=== PATIENT | female | born 1950 | race African-American/Black ===

== ENCOUNTER 2016-09-30 23:33 | Emergency (ER) | payer OTHER ==
[~2016-09-30] VITALS: Ht 175.3 cm; Wt 112.7 kg
[~2016-09-30 23:33] MED LIST: CLON.1 PO; ERYT.5%O EACH EYE; GUAI100S6 PO; NORV5TAB PO; TRAM50 PO; ZITH250T PO
[2016-09-30 23:39] VITALS: BP 151/97; PULSE 99; RESP 14; TEMP 98.4; O2SAT 97
[2016-09-30 23:49] VITALS: BP 151/97; PULSE 99; RESP 14; TEMP 98.4; O2SAT 97
--- NOTE | 2016-09-30 23:58 | PD ---
HPI Chief Complaint: Cold / Flu Symptoms Time Seen by Provider: 23:48 Travel History International Travel<30 days: No Contact w/Intl Traveler<30days: No Traveled to known affect area: No History of Present Illness HPI The patient is a 66-year-old female that complains of cough/cold symptoms for 5 days. She states she had similar symptoms the entire month of July. These resolved but they started again 5 days ago. The cough is productive of white sputum. She denies any fever but does have chills. She does not smoke. She denies any nausea, vomiting or diarrhea. She does have sharp pain over the right lateral ribs. She states she injured them months ago. PFSH Past Medical History Heart Rhythm Problems: No Cardiac Catheterization: No Cardiovascular Problems: No High Cholesterol: No Congestive Heart Failure: No Diabetes: No Diminished Hearing: No Hypertension: Yes Myocardial Infarction: No ?: Not Past Surgical History Coronary Artery Bypass Graft: No Hysterectomy: Yes (90S) Social History Alcohol Use: No Tobacco Use: No Substance Use: No Allergies-Medications (Allergen,Severity, Reaction): Coded Allergies: Levaquin (Verified Allergy, Severe, HIVES, 09/30/16) Morphine (Verified Allergy, Intermediate, NAUSEA, 09/30/16) Reported Meds & Prescriptions Reported Meds & Active Scripts Active No Active Prescriptions or Reported Medications Review of Systems Except as stated in HPI: all other systems reviewed are Neg Physical Exam Narrative GENERAL: Well-nourished, alert and oriented, slightly obese patient in no respiratory distress. Her vital signs show blood pressure 151/97 but are otherwise normal. SKIN: Focused skin assessment warm/dry. HEAD: Normocephalic. EYES: No scleral icterus. No injection or drainage. NECK: Supple, trachea midline. No JVD or lymphadenopathy. CARDIOVASCULAR: Regular rate and rhythm without murmurs, gallops, or rubs. RESPIRATORY: Breath sounds equal bilaterally. No accessory muscle use. Lungs clear to auscultation bilaterally. There is tenderness over the musculature and ribs over the right lateral chest. No flail is noted. I can completely reproduce pain by pressing on the ribs in this area. GASTROINTESTINAL: Abdomen soft, non-tender, nondistended. MUSCULOSKELETAL: No cyanosis, or edema. BACK: Nontender without obvious deformity. No CVA tenderness. Data Data Last Documented VS Vital Signs Date Time Temp Pulse Resp B/P Pulse Ox O2 Delivery O2 Flow Rate FiO2 09/30/16 23:53 97 Room Air 09/30/16 23:49 98.4 99 14 151/97 Orders Influenzae A/B Antigen (10/01/16 00:01) Chest, Pa & Lat (10/01/16 00:01) MDM Medical Decision Making Medical Screen Exam Complete: Yes Emergency Medical Condition: Yes Medical Record Reviewed: Yes Interpretation(s) The chest x-ray shows no acute cardiopulmonary disease. The chest x-ray was compared with a chest x-ray done on September 29, 2014. The influenza A/antigen is negative for flu a and flu B antigen. Differential Diagnosis Viral upper respiratory infection, pneumonia, bronchitis, pneumothoraxhighly unlikely, fracture ribs, flu syndrome Narrative Course The patient has a viral upper respiratory infection. Plan: The patient will increase liquid intake and rest. She will be given off work. Diagnosis Primary Impression: Viral upper respiratory infection Additional Instructions: Follow-up with your primary care physician next week. Rest, increase liquids, Tylenol and Motrin are the treatment for a virus. As you already know, these viruses can last a long time, sometimes for weeks. Med/Other Pt SpecificInfo: No Change to Meds Scripts No Active Prescriptions or Reported Meds Disposition: DISCHARGE HOME Condition: Stable Jose Mcghee MD Sep 30, 2016 23:58
--- NOTE | 2016-10-01 00:49 | RADHPO ---
EXAM DATE/TIME: 10/01/2016 00:19 [facility] COMPARISON: CHEST PA & LAT, September 29, 2014, 11:24. INDICATIONS : Cough and right chest pain. MEDICAL HISTORY : None. SURGICAL HISTORY : None. ENCOUNTER: Initial ACUITY: 1 week PAIN SCORE: 7/10 LOCATION: Bilateral chest FINDINGS: Mild bibasilar scarring is similar to before. No pleural effusion demonstrated. No pneumothorax. Heart size stable, within normal limits. Tortuous thoracic aorta again noted. CONCLUSION: Unchanged Appearance of the chest. No evidence of acute cardiopulmonary disease. Bello Cali MD on October 01, 2016 at 0:46 Board Certified Radiologist. This report was verified electronically.
[2016-10-01 01:21] VITALS: BP 155/96; TEMP 98.7
== END 2016-10-01 01:32 | disposition home or self-care (01) ==
LOC: PHED 23:33
DX: J06.9 Acute upper respiratory infection, unspecified (principal); R07.89 Other chest pain; I10 Essential (primary) hypertension
CPT/HCPCS: 71020; 87804; 99283

== ENCOUNTER 2017-01-17 14:16 | Emergency (ER) | payer OTHER ==
[~2017-01-17] VITALS: Ht 172.7 cm; Wt 111.0 kg
[2017-01-17 14:27] VITALS: BP 171/93; PULSE 102; RESP 18; TEMP 98.2; O2SAT 97
[2017-01-17] MEDS ORDERED: B P MED (15:38)
[2017-01-17] MEDS ORDERED: BENZ100 PO (15:51)
[2017-01-17] MEDS ORDERED: VENTAER INH (15:51)
[2017-01-17] MEDS ORDERED: AZIT250T3 PO (15:51)
--- NOTE | 2017-01-17 15:52 | PD ---
HPI Chief Complaint: Cold / Flu Symptoms Time Seen by Provider: 15:20 Travel History International Travel<30 days: No Contact w/Intl Traveler<30days: No Traveled to known affect area: No History of Present Illness HPI 66-year-old female past medical history of hypertension presents emergency department for evaluation of a cough 3 weeks. Patient reports she saw her PCP for URI like symptoms who placed her on amoxicillin last week. She reports she' s been taking the antibiotics without improvement. She reports her cough is productive. She has episodes of wheezing at night. She denies fever, chills, chest pain, shortness of breath, nausea or vomiting. She reports symptoms are unrelieved by [id number] cough and cold medicines. She reports she's had similar symptoms with pneumonia in the past. No aggravating or alleviating factors. PFSH Past Medical History Narrative Medical Significant for hypertension Heart Rhythm Problems: No Cardiac Catheterization: No Cardiovascular Problems: No High Cholesterol: No Congestive Heart Failure: No Diabetes: No Diminished Hearing: No Hypertension: Yes Myocardial Infarction: No Influenza Vaccination: No ?: Not Menopausal: Yes Past Surgical History Coronary Artery Bypass Graft: No Hysterectomy: Yes (S) Social History Alcohol Use: No Tobacco Use: No Substance Use: No Allergies-Medications (Allergen,Severity, Reaction): Coded Allergies: levofloxacin (Unverified Allergy, Severe, HIVES, 01/17/17) morphine (Verified Allergy, Intermediate, NAUSEA, 01/17/17) Reported Meds & Prescriptions Reported Meds & Active Scripts Active Reported [B P Med] 0 Review of Systems Except as stated in HPI: all other systems reviewed are Neg General / Constitutional: No: Fever Eyes: No: Visual changes HENT: No: Headaches Cardiovascular: No: Chest Pain or Discomfort Respiratory: Positive: Cough, Wheezing Physical Exam Narrative GENERAL: Alert, well-appearing female in no acute distress SKIN: Focused skin assessment warm/dry. HEAD: Atraumatic. Normocephalic. EYES: Pupils equal and round. No scleral icterus. No injection or drainage. ENT: No nasal bleeding or discharge. Mucous membranes pink and moist. NECK: Trachea midline. No JVD. CARDIOVASCULAR: Regular rate and rhythm. No murmur appreciated. RESPIRATORY: No accessory muscle use. Clear to auscultation. Breath sounds equal bilaterally. Patient coughing throughout exam GASTROINTESTINAL: Abdomen soft, non-tender, nondistended. Hepatic and splenic margins not palpable. MUSCULOSKELETAL: No obvious deformities. No clubbing. No cyanosis. No edema. NEUROLOGICAL: Awake and alert. No obvious cranial nerve deficits. Motor grossly within normal limits. Normal speech. PSYCHIATRIC: Appropriate mood and affect; insight and judgment normal. Data Data Last Documented VS Vital Signs Date Time Temp Pulse Resp B/P Pulse Ox O2 Delivery O2 Flow Rate FiO2 01/17/17 14:27 98.2 102 18 171/93 97 Room Air MDM Medical Decision Making Medical Screen Exam Complete: Yes Emergency Medical Condition: Yes Differential Diagnosis Bronchitis, pneumonia, URI Narrative Course 66-year-old female with chief complaint of cough 3 weeks. Patient reports over the last week the cough has become productive and she's had several episodes of wheezing at night. Her physical exam is reassuring. Her lung sounds are clear bilaterally there are no adventitious breath sounds. Her vital signs are stable she is afebrile. Patient will be treated for bronchitis with azithromycin, Tessalon Perles, albuterol inhaler. She was instructed to follow-up with her primary care doctor for recheck. Return precautions discussed. Patient verbalizes understanding and agrees to plan Diagnosis Primary Impression: Bronchitis Referrals: Primary Care Physician Scripts Albuterol 18 GM Inh (Ventolin Hfa 18 GM Inh)90 Mcg/Act Aer2 Puff INH Q4-6H PRN ( SHORTNESS OF BREATH) #1 INHALER Ref 0 Prov:Shirlene Wells 01/17/17 Benzonatate (Tessalon Perles)100 Mg Gpg308 Mg PO TID PRN (COUGH) #30 CAP Ref 0 Prov:Shirlene Wells 01/17/17 Azithromycin 250 Mg Vax119 Mg PO DIRECTED #6 TAB Take 2 tabs (500 mg) on day 1 then 1 tab daily x 4 days. Prov:Shirlene Wells 01/17/17 Disposition: 01 DISCHARGE HOME Condition: Stable Shirlene Wells Jan 17, 2017 15:52
== END 2017-01-17 16:08 | disposition home or self-care (01) ==
LOC: PHED 14:16
DX: J20.9 Acute bronchitis, unspecified (principal); I10 Essential (primary) hypertension
CPT/HCPCS: 99284

== ENCOUNTER 2017-07-01 10:22 | Emergency (ER) | payer OTHER ==
[~2017-07-01] VITALS: Ht 172.7 cm; Wt 110.0 kg
[~2017-07-01 10:22] MED LIST changes: +AZIT250T3 PO; +B P MED; +BENZ100 PO; -CLON.1 PO; -ERYT.5%O EACH EYE; -GUAI100S6 PO; -NORV5TAB PO; -TRAM50 PO; +VENTAER INH; -ZITH250T PO
[2017-07-01 10:29] VITALS: BP 124/73; PULSE 100; RESP 16; TEMP 98; O2SAT 97
--- NOTE | 2017-07-01 11:30 | PD ---
HPI Chief Complaint: Cold / Flu Symptoms Time Seen by Provider: 10:49 Travel History International Travel<30 days: No Contact w/Intl Traveler<30days: No Traveled to known affect area: No History of Present Illness HPI 66-year-old female presents to emergency department with body aches, headache, congestion for about 1 week. Patient states that she has been using Tylenol without relief for her headache but is developed back pain and leg pain in addition to her generalized body aches. Patient states that her temperature has been low-grade about 99-100. Patient states she is here today because she has been watching the news and she is concerned about developing worsening symptoms. Patient states she has a history of 'collapsed lung'. 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 Denies chest pain, shortness of breath, vomiting or diarrhea. Patient states that she has occasional nausea without vomiting. PFSH Past Medical History Heart Rhythm Problems: No Cardiac Catheterization: No Cardiovascular Problems: No High Cholesterol: No Congestive Heart Failure: No Diabetes: No Diminished Hearing: No Hypertension: Yes Myocardial Infarction: No Influenza Vaccination: No Menopausal: Yes Past Surgical History Coronary Artery Bypass Graft: No Hysterectomy: Yes (S) Social History Alcohol Use: No Tobacco Use: No Substance Use: No Allergies-Medications (Allergen,Severity, Reaction): Coded Allergies: levofloxacin (Unverified Allergy, Severe, HIVES, 07/01/17) morphine (Verified Allergy, Intermediate, NAUSEA, 07/01/17) Reported Meds & Prescriptions Reported Meds & Active Scripts Active No Active Prescriptions or Reported Medications Review of Systems Except as stated in HPI: all other systems reviewed are Neg Physical Exam Narrative GENERAL: Well-developed well-nourished in no apparent distress SKIN: Focused skin assessment warm/dry. HEAD: Atraumatic. Normocephalic. EYES: Pupils equal and round. No scleral icterus. No injection or drainage. ENT: No nasal bleeding or discharge. Mucous membranes pink and moist. Mild pharyngeal injection posterior pharynx without tonsillar hypertrophy or exudate. Left tonsillar stones NECK: Trachea midline. No JVD. No lymphadenopathy CARDIOVASCULAR: Regular rate and rhythm. No murmur appreciated. RESPIRATORY: No accessory muscle use. Clear to auscultation. Breath sounds equal bilaterally. GASTROINTESTINAL: Abdomen soft, non-tender, nondistended. Hepatic and splenic margins not palpable. MUSCULOSKELETAL: No obvious deformities. No clubbing. No cyanosis. No edema. Homans sign negative bilaterally NEUROLOGICAL: Awake and alert. No obvious cranial nerve deficits. Motor grossly within normal limits. Normal speech. PSYCHIATRIC: Appropriate mood and affect; insight and judgment normal. Data Data Last Documented VS Vital Signs Date Time Temp Pulse Resp B/P (MAP) Pulse Ox O2 Delivery O2 Flow Rate FiO2 07/01/17 10:29 98.0 100 16 124/73 (90) 97 Orders Orders Influenzae A/B Antigen (07/01/17 11:03) Group A Rapid Strep Screen (07/01/17 11:03) Strep Culture (Group A) (07/01/17 11:15) Ed Discharge Order (07/01/17 11:36) MDM Medical Decision Making Medical Screen Exam Complete: Yes Emergency Medical Condition: Yes Differential Diagnosis Influenza, upper respiratory infection, viral syndrome Narrative Course 66-year-old female presents to emergency department with body aches, headache, congestion for about 1 week. Patient states that she has been using Tylenol without relief for her headache but is developed back pain and leg pain in addition to her generalized body aches. Patient states that her temperature has been low-grade about 99-100. Patient states that she has had occasional nausea without vomiting since the onset of symptoms. Patient states she is here today because she has been watching the news and she is concerned about developing worsening symptoms. Patient states she has a history of 'collapsed lung'. 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 Denies chest pain, shortness of breath, vomiting or diarrhea. Vital signs stable. Physical exam findings consistent with viral syndrome, influenza, upper respiratory symptoms. Flu and strep negative. Patient is strongly advised to avoid contact with others and her symptoms are resolved. Advised patient to continue fluid intake and remain active to reduce worsening of symptoms to include pneumonia. Patient states understanding will comply. Patient advised to follow-up with her primary care physician this week. Diagnosis Primary Impression: Viral syndrome Referrals: Primary Care Physician Additional Instructions: Follow-up with primary care physician this week. If your symptoms persist or worsen return to the emergency. Remained active as tolerated to prevent worsening of your symptoms. Ensure you have adequate fluid intake You may alternate tylenol or motrin per package instructions for your symptoms. Scripts No Active Prescriptions or Reported Meds Disposition: DISCHARGE HOME Condition: Stable Rosmery Brady 27, 2018 11:30
== END 2017-07-01 11:43 | disposition home or self-care (01) ==
LOC: PHEFT 10:22
DX: B34.9 Viral infection, unspecified (principal); I10 Essential (primary) hypertension
CPT/HCPCS: 87081; 87804; 87880; 99283

== ENCOUNTER 2017-07-07 11:06 | Inpatient (IN) | payer OTHER, MEDICARE ==
[2017-07-07] VITALS (13 sets, daily range): BP systolic 126–199; BP diastolic 74–99; PULSE 88–127; RESP 16–22; TEMP 97.9–98.6; O2SAT 97–99
[~2017-07-07] VITALS: Ht 170.2 cm; Wt 110.6 kg
[2017-07-07] MEDS ORDERED: ASPIRIN 81 MG CHEW TAB PO STA (11:24)
[2017-07-07] MEDS ORDERED: NITROGLYCERIN 0.4 MG SL 25 TABS/BTL SL STA (11:24)
[2017-07-07] MEDS ORDERED: SODIUM CHLOR 0.9% 1000 ML INJ 1,000 ML IV ONE (11:24)
[2017-07-07] MEDS ORDERED: HEPARIN SODIUM - IV 10,000 UNITS/10 ML VIAL IV PUSH STA (11:24)
[2017-07-07] MEDS ORDERED: SODIUM CHLORIDE 0.9% FLUSH 10 ML FLUSH IVF PRN (11:30)
[2017-07-07] MEDS ORDERED: NITROGLYCERIN-D5W 50 MG/250 ML 250 ML IV PRN (11:30)
[2017-07-07] MEDS ORDERED: NITROGLYCERIN 2% OINT 1 GM PACKET TOPICAL ONE (11:30)
--- NOTE | 2017-07-07 11:37 | RADRPT ---
EXAM DATE/TIME: 07/07/2017 11:28 [facility] COMPARISON: CHEST PA & LAT, October 01, 2016, 0:19. INDICATIONS : Chest pain, pain goes down left arm. MEDICAL HISTORY : None. SURGICAL HISTORY : None. ENCOUNTER: Initial ACUITY: 1 day PAIN SCORE: 8/10 LOCATION: Bilateral chest FINDINGS: A single view of the chest demonstrates the lungs to be symmetrically aerated without evidence of mas s, infiltrate or effusion. There is mild atelectasis and/or scarring at the lung bases. The cardiome diastinal contours are unremarkable. Osseous structures are intact. CONCLUSION: No acute disease. Rick Silva MD on July 07, 2017 at 11:33 Board Certified Radiologist. This report was verified electronically.
[2017-07-07 11:43] LABS: CHLORIDE 105 MEQ/L (98-107); SODIUM (NA) 139 MEQ/L (136-145)
--- NOTE | 2017-07-07 11:43 | PD ---
HPI Chief Complaint: Chest Pain Time Seen by Provider: 11:14 Travel History International Travel<30 days: No Contact w/Intl Traveler<30days: No Traveled to known affect area: No History of Present Illness HPI 66 years old female complaining of chest pain. Patient states that the pain started about 1 hour prior coming to emergency room. Patient states the pain is substernal pressure with radiation to the left arm. Patient denies any palpitation nausea or diaphoresis. Patient denies any history of CAD. Patient states that she has history of with an hypertension and prediabetes. Patient is not on medication for that. Patient denies history of hyperlipidemia. Patient is a nonsmoker. Patient has family history of heart disease. On a scale of 1-10 the pain is an 8. PFSH Past Medical History Heart Rhythm Problems: No Cardiac Catheterization: No Cardiovascular Problems: No High Cholesterol: No Congestive Heart Failure: No Diabetes: No Diminished Hearing: No Hypertension: Yes Myocardial Infarction: No Tetanus Vaccination: > 5 Years Influenza Vaccination: No ?: Not Menopausal: Yes Past Surgical History Coronary Artery Bypass Graft: No Hysterectomy: Yes Social History Alcohol Use: No Tobacco Use: No Substance Use: No Allergies-Medications (Allergen,Severity, Reaction): Coded Allergies: levofloxacin (Verified Allergy, Severe, Hives, 07/07/17) morphine (Verified Adverse Reaction, Severe, Nausea, 07/07/17) Reported Meds & Prescriptions Reported Meds & Active Scripts Active No Active Prescriptions or Reported Medications Review of Systems General / Constitutional: No: Fever Eyes: No: Visual changes HENT: No: Headaches Cardiovascular: Positive: Chest Pain or Discomfort Respiratory: No: Shortness of Breath Gastrointestinal: No: Abdominal Pain Genitourinary: No: Dysuria Musculoskeletal: No: Pain Skin: No Rash Neurologic: No: Weakness Psychiatric: No: Depression Endocrine: No: Polydipsia Hematologic/Lymphatic: No: Easy Bruising Physical Exam Narrative GENERAL: Well-nourished, well-developed patient. SKIN: Focused skin assessment warm/dry. HEAD: Normocephalic. EYES: No scleral icterus. No injection or drainage. NECK: Supple, trachea midline. No JVD or lymphadenopathy. CARDIOVASCULAR: Regular rate and rhythm without murmurs, gallops, or rubs. RESPIRATORY: Breath sounds equal bilaterally. No accessory muscle use. GASTROINTESTINAL: Abdomen soft, non-tender, nondistended. MUSCULOSKELETAL: No cyanosis, or edema. BACK: Nontender without obvious deformity. No CVA tenderness. Neurologic exam normal. Data Data Last Documented VS Vital Signs Date Time Temp Pulse Resp B/P (MAP) Pulse Ox O2 Delivery O2 Flow Rate FiO2 07/07/17 11:25 124 22 99 Nasal Cannula 2.00 07/07/17 11:20 98.5 199/92 (127) Orders Orders Troponin I (07/07/17 11:24) Ckmb (Isoenzyme) Profile (07/07/17 11:24) Complete Blood Count With Diff (07/07/17 11:24) Basic Metabolic Panel (Bmp) (07/07/17 11:24) Magnesium (Mg) (07/07/17 11:24) Calcium (07/07/17 11:24) Prothrombin Time / Inr (Pt) (07/07/17 11:24) Act Partial Throm Time (Ptt) (07/07/17 11:24) B-Type Natriuretic Peptide (07/07/17 11:24) Chest, Single Ap (07/07/17 11:24) Electrocardiogram (07/07/17 11:24) Oxygen Administration (07/07/17 11:24) Iv Access Insert/Monitor (07/07/17 11:24) Oximetry (07/07/17 11:24) Sodium Chlor 0.9% 1000 Ml Inj (Ns 1000 M (07/07/17 11:24) Sodium Chloride 0.9% Flush (Ns Flush) (07/07/17 11:30) Aspirin Chew (Aspirin Chew) (07/07/17 11:24) Nitroglycerin Sl (Nitrostat Sl) (07/07/17 11:24) Nitroglycerin-D5w 50 Mg/250 Ml (Nitrogly (07/07/17 11:30) Heparin Inj (Heparin Inj) (07/07/17 11:24) Nitroglycerin 2% Oint (Nitroglycerin 2% (07/07/17 11:30) Cardiac Catheterization (07/07/17 ) Admit Order (Ed Use Only) (07/07/17 11:30) Labs Laboratory Tests Test 07/07/17 11:20 [facility] Medical Decision Making Medical Screen Exam Complete: Yes Emergency Medical Condition: Yes Interpretation(s) EKG shows sinus rhythm with left bundle-branch block. Differential Diagnosis Differential diagnosis including STEMI, PE, noncardiac Narrative Course 66 years old female with chest pain. EKG shows new onset left bundle branch block compared to previous EKG done at 2014. STEMI alert was called. I spoke with music composition teacher Dr. Carpenter. Patient will be transferred emergently to the main hospital to go to cardiac [facility]. Heparin bolus given. Aspirin given. Nitro paste given. Diagnosis Primary Impression: STEMI (ST elevation myocardial infarction) Qualified Codes: I21.3 - ST elevation (STEMI) myocardial infarction of unspecified site Admitting Information Admitting Physician Requests: Admit Scripts No Active Prescriptions or Reported Meds En De Jesus MD Jul 07, 2017 11:43
[2017-07-07 11:46] LABS: BICARBONATE 27.3 MEQ/L (21.0-32.0); BLOOD UREA NITROGEN 14 MG/DL (7-18); CALCIUM 9.3 MG/DL (8.5-10.1); GLUCOSE,RANDOM 108 MG/DL (74-106); MAGNESIUM 2.1 MG/DL (1.5-2.5)
[2017-07-07 11:47] LABS: PROTHROMBIN TIME - PATIENT 10.1 SEC (9.8-11.6)
[2017-07-07 11:50] LABS: CREATININE 0.78 MG/DL (0.50-1.00); GLOMERULAR FILTRATION RATE 89 ML/MIN (>89)
[2017-07-07 11:53] LABS: TROPONIN I LESS THAN 0.02 NG/ML (0.02-0.05)
[2017-07-07] MEDS ORDERED: NITROGLYCERIN 50 MG/D5W 250 ML IV PRN (12:00)
[2017-07-07 12:13] LABS: AUTOMATED NEUTROPHIL # 3.7 TH/MM3 (1.8-7.7); BASOPHIL # 0.1 TH/MM3 (0-0.2); BASOPHIL % 0.7 % (0.0-2.0); EOSINOPHIL # 0.1 TH/MM3 (0-0.4); EOSINOPHIL % 1.3 % (0.0-4.0); HEMATOCRIT 41.2 % (35.0-46.0); HEMOGLOBIN 13.7 GM/DL (11.6-15.3); LYMPH % 49.1 % (9.0-44.0); LYMPHOCYTE # 4.6 TH/MM3 (1.0-4.8); MEAN CELL VOLUME 88.7 FL (80.0-100.0); MEAN CORPUSCULAR HEMOGLOBIN 29.5 PG (27.0-34.0); MEAN CORPUSCULAR HGB CONC 33.3 % (32.0-36.0); MEAN PLATELET VOLUME 8.9 FL (7.0-11.0); MONO % 8.1 % (0.0-8.0); MONOCYTE # 0.7 TH/MM3 (0-0.9); NEUT % 40.8 % (16.0-70.0); PLATELET COUNT 395 TH/MM3 (150-450); RED BLOOD COUNT 4.64 MIL/MM3 (4.00-5.30); WHITE BLOOD COUNT 9.2 TH/MM3 (4.0-11.0)
[2017-07-07] MEDS ORDERED: MIDAZOLAM HCL 2 MG/2 ML VIAL ONE (12:24)
[2017-07-07] MEDS ORDERED: HYDROCORTISONE SOD SUCCINATE 100 MG VIAL ONE (12:35)
[2017-07-07] MEDS ORDERED: MISC INFORMATION XX ONE (13:00)
[2017-07-07] MEDS ORDERED: SODIUM CHLOR 0.9% 250 ML INJ 250 ML IV PRN (13:00)
[2017-07-07] MEDS ORDERED: ATROPINE SULFATE 1 MG/ML VIAL IV PRN (13:00)
--- NOTE | 2017-07-07 13:00 | CATHPROC ---
[facility] HIS Report Study Information Study Number Admission Scheduled Start Study Start [id number] Jul 07 2017 11:06AM 07/07/2017 Jul 07 2017 11:39AM [place] [facility] Cardiac Catheterization Admit Source Facility Department Emergency department [facility] - Slotter Operator Helper Physician and Clinical Staff Initial Parker William Cloud Administrator Juan Francisco Cuadra,SAKINA Cloud Administrator Rubia Metcalf BSN Recorder Yanely Munoz RCIS TECH2 Scrub Lashay Parker,RT(R) Procedures Performed Procedure Location (Site) Vessel Name Angiogram LV LV Ventricle Coronary Angiograms LCA Left Coronary Coronary Angiograms RCA Right Coronary Equipment Time Rubber Goods Cutter Finisher Description Size Mfg Part Number Used/Scraped TRANSDUCER, TRResident ResearchAVE [id number] 11:41 PÉREZ QUIÑONEZ * Used W/STOCKCOCK *[id number] 12:40 [employer] VASCADE, FR6 CLOSURE SYSTEM FR 6\7 Used *[id number] *[id number] *[id number] *[id number] 11:41 [employer] PACK, CCL CUSTOM * Used *[id number] 11:41 Surphace PACER PEN, SKIN DUAL W/ RULER * Used *[id number] 11:41 [employer] MEDICAL SHEATH, FR6.5 PRELUDE 11CM FR 6.5 038ACT Used *[id number] 11:41 [employer] MEDICAL WIRE, 3MMJ .035 180CM 180CM Used *[id number] 11:41 NAMIC MANIFOLD, 4 PORT * Used *[id number] 11:41 [employer] OMNIPAQUE, 350 MG, 150ML 150ML [id number] Used 12:40 [employer] OMNIPAQUE, 350 MG, 50ML 50ML [id number] Used [id number] 11:41 [employer] MEDICAL BLANKET,WARM AIR CCL * Used *[id number] History: Allergies Allergy Reaction morphine Nausea levofloxacin Hives History: Risk Factors Family History of Hypertension Dyslipidemia Previous AR Previous Heart Failure Premature CAD Yes Yes No No No Prior Valve Prior PCI Prior CABG Surgery No No No Cerebrovascular Peripheral Artery Chronic Lung On Dialysis Diabetes Diabetes Therapy Disease Disease Disease No No No No Yes None History: Symptoms/Diagnosis Selection Items Chest pain History: Stress Tests Stress or Imaging Studies Performed No History: Other Current Smoker No Labs Hgb (g/dl) Hct (%) RBC (MIL/MM3) WBC (l/cumm) Platelets (thousands) 11.60-17.00 35.00-51.00 4.00-5.90 4.00-11.00 150.00-450.00 13.7 41.2 4.6 9.2 395 Glucose (mg/dl) BUN (mg/dl) Creatinine (mg/dl) BUN:Creatinine (1:x) 74.00-106.00 7.00-18.00 0.50-1.30 10.00-20.00 108 14 0.7 20 Na (meq/l) K (meq/l) 136.00-145.00 3.50-5.10 139 3.4 INR (PTT:PT) 0.90-1.10 1 Troponin I (ng/ml) CPK (u/l) CPK-MB (ng/ML) 0.02-0.05 26.00-308.00 0.50-3.60 0.02 88 Not Drawn Medication Medication Total Dose (Bolus/Oral) Medication Total Dosage/Unit 1% XYLOCAINE 20 mL NITRO OINTMENT 2 inches SOLU-CORTEF 120 mg VERSED 2 mg Medications (Bolus/Oral) Medication Time Given Dosage/Unit Administered By Reason NITRO OINTMENT 07/07/2017 12:22:36 PM 2 inches Patient arrived on 2 inches NITRO OINTMENT via Subcutaneous. left clavicle 1% XYLOCAINE 07/07/2017 12:32:41 PM 20 mL Parker Carpenter 20 mL 1% XYLOCAINE given in lab by Parker Carpenter in Right Groin via Subcutaneous. VERSED 07/07/2017 12:32:44 PM 2 mg Juan Francisco Cuadra 2 mg VERSED given in lab by Juan Francisco Cuadra, RN in Right Antecubital via Peripheral IV. Ordered by Parker Perez. SOLU-CORTEF 07/07/2017 12:36:30 PM 120 mg Rubia Metcalf 120 mg SOLU-CORTEF given in lab by Rubia Metcalf BSN in Right Antecubital via Peripheral IV. O rdered by Parker Carpenter. Medication (Drip) Medication Time Given Dosage/Unit Concentration/Unit Diluent (ml) Solution IV Solutions 07/07/2017 12:16:32 PM 0 mL (IV) 1000 NaCl .9 Patient arrived on IV Solutions in Right Antecubital via Peripheral IV. Pump/Drip Flow = 20 ml/hr usi ng NaCl .9. Initial Case Assessment Cardiovascular HR Rhythm NIBP Chest Pain 60 LBBB 163/95 6 Circulatory - Right Pulses Dorsalis Pedis Femoral 2 3 Scale (0,1,2,3,4,d) Circulatory - Left Pulses Dorsalis Pedis Femoral 2 3 Scale (0,1,2,3,4,d) Neurological State Oriented to time-place- Alert Moves all extremities person Respiration - General Respiration Rate SpO2 (%) O2 (lpm) (B/min) 20 100 2 Final Case Assessment Cardiovascular HR Rhythm NIBP Chest Pain 96 LBBB 157/81 3 Circulatory - Right Pulses Dorsalis Pedis Femoral 2 3 Scale (0,1,2,3,4,d) Circulatory - Left Pulses Dorsalis Pedis Femoral 2 3 Scale (0,1,2,3,4,d) Neurological State Oriented to time-place- Alert Moves all extremities person Respiration - General Respiration Rate SpO2 (%) O2 (lpm) (B/min) 20 98 2 Chronological Log Time Study Chronological Log 12:14:00 Patient arrived directly from [facility] ER. 12:14:13 Patient Name, D.O.B, / Armband Verified By R.N. 12:16:17 Consent signed by the physician and the patient and verified by the Slotter Operator Helper staff. 12:16:18 Pre-op and post- op instructions given; patient acknowledges understanding of instructions. 12:16:19 Verbal Stimulation=2 Physical Stimulation=2 Airway=2 Respiration=2 TOTAL=8. (0=absent, 1=li mited, 2=present) 12:16:20 Presedation assessment performed by Slotter Operator Helper RN. 12:16:23 Patient has been NPO for More than 6Hrs. 12:16:25 Skin Breakdown-none 12:16:26 Disposable Defibrillator Pads Placed On Patient. 12:16:28 A # 20 IV was noted in the Antecubital (left). Grade = patent 12:16:28 Rossi Prominences Protected 12:16:31 A # 20 IV was noted in the Antecubital (right). Grade = patent 12:16:32 Patient arrived on IV Solutions in Right Antecubital via Peripheral IV. Pump/Drip Flow = 20 ml/hr using NaCl .9. 12:16:35 History and physical on the chart or being dictated. Vitals capture started with the following parameters, Patient=Adult, Interval=5 min, Initial Pr zlhoqh=691 mmHg, 12:20:11 Deflation Rate=5 mmHg, Cuff placed on Left Arm 12:20:49 HHTS=937/95 mmhg, SpO2=97.0 %, Resp=7 B/min Assessment: Initial Case, HR=60 BPM, Rhythm=LBBB, PWMB=621/95 mmhg, Chest Pain=6 Right Pulses: Ba Ped=2, Femoral=3 12:22:24 Left Pulses: Ba Ped=2, Femoral=3 Neurological: State=Alert, Ox3, FRANKLIN Respiration: Resp=20 B/min, ZfX6=251 %, O2=2 lpm 12:22:28 Bilateral groins prepped with 2% chlorhexidine, and draped after a 3 minute waiting time. 12:22:36 Patient arrived on 2 inches NITRO OINTMENT via Subcutaneous. left clavicle 12:24:43 Reference ECG taken 12:25:51 BZ=198 bpm, VPBJ=692/93 mmhg, WgA2=122.0 %, Resp=19 B/min 12:25:57 MD paged 12:26:19 MD responded 12:27:25 Pressure channel 1 zeroed. 12:29:29 MD arrived. 12:30:52 BU=159 bpm, VBGJ=319/90 mmhg, MoK6=760.0 %, Resp=13 B/min, Pain=6, Cervantes=2 Time Out. Correct patient, correct procedure, correct physician, power injector loaded, or not loaded with contrast with 12:32:13 surgical team present. Time Out Concurred by MD and individual staff in procedure. 12:32:40 Case Start 12:32:41 20 mL 1% XYLOCAINE given in lab by Parker Carpenter in Right Groin via Subcutaneous. 12:32:44 2 mg VERSED given in lab by Juan Francisco Cuadra, RN in Right Antecubital via Peripheral IV. Orde red by Parker Carpenter. 12:33:42 Access site was Right Femoral Artery. 12:34:14 A SHEATH, FR6.5 PRELUDE 11CM FR 6.5 was advanced into the Fem Art (right) using the Percuta neous technique. 12:34:28 Activated Clotting Time Drawn A 3DRC INFINITI CATHETER FR 6 was advanced over a wire. OMNIPAQUE, 350 MG, 150ML 150ML was used for 12:35:02 injections. 12:35:21 The RCA was injected and visualized at various angles. OMNIPAQUE, 350 MG, 150ML 150ML used . 12:35:45 Catheter was removed 12:35:51 HR=46 bpm, UWVF=543/86 mmhg, SpO2=98.0 %, Resp=12 B/min A JL 4.0 INFINITI CATHETER FR 6 was advanced over a wire. OMNIPAQUE, 350 MG, 150ML 150ML was us ed for 12:36:22 injections. 120 mg SOLU-CORTEF given in lab by Rubia Metcalf BSN in Right Antecubital via Peripheral IV. Ordered by 12:36:30 Parker Carpenter. 12:37:07 The LCA was injected and visualized at various angles. OMNIPAQUE, 350 MG, 150ML 150ML used . 12:37:35 ACT (Normal Range 90-180) = 172 12:38:02 Catheter was removed Recorded Pressure: LV, LM=184, Condition=Condition 1 12:39:13 (Left Ventricle) LV 141/10/14 A PIGTAIL STR INFINITI CATHETER FR 6 was advanced over a wire. OMNIPAQUE, 350 MG, 50ML 50ML was used for 12:39:16 injections. 12:39:44 The LV was injected at 12 cc/sec for a total of 42. OMNIPAQUE, 350 MG, 50ML 50ML used. Recorded Pressure: LV, Ao, ZZ=687, Condition=Condition 1 12:40:00 (Left Ventricle) LV 148/13/16, (Aorta) Ao 147/76/105 12:40:24 Catheter was removed 12:40:49 Case End 12:40:50 WE=775 bpm, XUSC=321/74 mmhg, SpO2=98.0 %, Resp=9 B/min, Pain=3 12:42:40 VASCADE, FR6 CLOSURE SYSTEM FR 6\7 placement in the Fem Art (right) 12:45:49 NA=550 bpm, REEN=452/81 mmhg, SpO2=98.0 %, Resp=20 B/min, Pain=3 12:45:56 Sterile dressing applied to site 12:45:57 No case complications noted. 12:45:58 Cine recording checked. 12:46:00 Bedside Report will be given. 12:46:01 Implantable Device card placed in patient's chart. 12:46:02 Contrast Scanned Assessment: Final Case, HR=96 BPM, Rhythm=LBBB, TAKL=881/81 mmhg, Chest Pain=3 Right Pulses: Ba Ped=2, Femoral=3 12:46:11 Left Pulses: Ba Ped=2, Femoral=3 Neurological: State=Alert, Ox3, [place] Respiration: Resp=20 B/min, SpO2=98 %, O2=2 lpm 12:54:42 Patient moved to bed 12:56:38 Patient transported to [facility]. End Study - Contrast Media Used In Study Contrast Total Opened (mL) Total Used (mL) Total Wasted (mL) Omnipaque 90 90 0 End Study - Maximum Contrast Load Max Contrast Load (mL) 790.6 End Study - Radiation Exposure Fluoro Time (minutes) 1.2 End Study - Sheaths Sheaths Pulled By Sheath Hold Time (min) Lashay Parker End Study - Patient Disposition Complications Transferred To Interventional Outcome No Telemetry Bed No attempt made
--- NOTE | 2017-07-07 13:01 | MA ---
cc: CHENG CANTOR M.D. DATE: 07/07/2017. PROCEDURE: Left heart catheterization, selective coronary angiography, left ventriculography. PROCEDURE NOTES: The patient was brought to the cardiac catheterization laboratory in a fasting state after having signed informed consent in the midst of a suspected acute ST-elevation myocardial infarction (new left bundle branch block). The right groin was prepped and draped as per policy and anesthetized with 1% lidocaine. Arterial access was obtained via the right femoral artery and a 6-Peruvian sheath placed. Coronary arteriography was performed using 6-Peruvian Jon left 4.0 and right progressive catheters. Left ventriculography was done using a standard 6-Peruvian pigtail. There were no apparent immediate complications. Her arteriotomy site was closed with VASCADE. HEMODYNAMIC DATA: Left ventricle 148 with an end-diastolic pressure of 16. Aorta 147/76 with a mean of 105. There is no significant transvalvular aortic gradient on pullback of the pigtail catheter. CORONARY ARTERIOGRAPHY: The left main is normal. The left anterior descending gives rise to a number of tiny diagonals. No disease is seen in the LAD system. The left circumflex is a medium-sized vessel giving rise to a large obtuse marginal. No disease is seen in the left circumflex system. The right coronary artery is a very large dominant vessel with minimal luminal irregularities in its proximal and midportion. LEFT VENTRICULOGRAPHY: Contrast injection of the left ventricle reveals no segmental wall motion abnormalities. Ejection fraction is estimated at 60%. CONCLUSIONS: 1. Minimal coronary artery disease. 2. Normal left ventricular function with estimated ejection fraction of 60% MD ANTHONY Mena/ALIREZA /12:44 PM 12:52 PM VAL
--- NOTE | 2017-07-07 13:23 | MB ---
cc: CHENG CANTOR M.D. DATE OF CONSULTATION: 07/07/2017. REASON FOR CONSULTATION: Possible ST-elevation myocardial infarction (new left bundle branch block). HISTORY OF PRESENT ILLNESS: The patient is a 66-year-old -[place] female with a history of hypertension, borderline diabetes, hyperlipidemia who was in her usual state of health up until this morning at about 10:00 a.m. when she began to experience moderate substernal chest "pressure" associated with slight shortness of breath without nausea or diaphoresis. She came to the [facility] about an hour later where EKG showed a new left bundle branch block, so she was called as a STEMI alert. At this time she continues to have low-grade chest discomfort. She denies pleurisy, dizziness, syncope, near-syncope, palpitations, pedal edema. PAST MEDICAL HISTORY: 1. Hypertension 2. Borderline diabetes 3. Hyperlipidemia. CARDIAC MEDICATIONS AT HOME: None. ALLERGIES: MORPHINE AND LEVOFLOXACIN FAMILY HISTORY There is no significant family history of early myocardial infarction or sudden cardiac . SOCIAL HISTORY: The patient denies any history of alcohol or tobacco abuse. REVIEW OF SYSTEMS: Review of systems as in the history of present illness otherwise negative or noncontributory. PHYSICAL EXAMINATION: VITAL SIGNS: On physical examination, blood pressure 147/69 with a pulse of 95, respirations 15. GENERAL: In general, she is a well-developed, well-nourished -[place] female in no acute distress. HEAD, EYES, EARS, NOSE, THROAT: On HEENT examination, jugular venous pressure is normal. Carotid pulses are 2+ bilaterally and without bruits. CHEST: Examination of the chest reveals clear lung carmichael. CARDIAC: On cardiac examination, she has a bradycardic, irregular rhythm without S3, S4 or murmur. ABDOMEN: On abdominal examination, she has a soft, nontender abdomen. Bowel sounds are present. There is no definite hepatosplenomegaly. EXTREMITIES: No cyanosis, clubbing or edema. Peripheral pulses are normal throughout. EKGS: EKG shows sinus rhythm, left bundle-branch block. LABORATORY DATA: Laboratory data includes normal CBC, potassium 3.4, BUN 14, creatinine 0.78, troponin less than 0.02, CK 88. IMPRESSION: Possible acute myocardial infarction with new left bundle branch block in this 66-year-old record -[place] female with a history of hypertension, borderline diabetes, hyperlipidemia. At this time she has ongoing chest discomfort. Therefore she has been recommended emergency cardiac catheterization with possible percutaneous coronary intervention. The nature of these procedures and potential risks have been outlined. She agrees to proceed. PLANS: Emergency cardiac catheterization. ADDENDUM: The patient's cardiac catheterization shows minimal right coronary disease. At this point, would recommend noncardiac chest pain evaluation. Will follow up as needed. MD ANTHONY Mena/ALIREZA /12:46 PM /12:56 PM MTDJeremy
[2017-07-07] MEDS ORDERED: SODIUM CHLOR 0.9% 1000 ML INJ 1,000 ML IV SCH (14:00)
[2017-07-07] MEDS ORDERED: IOHEXOL 350 MG/ML 100 ML BTL (for Cath Lab) OTHER ONE (14:16)
--- NOTE | 2017-07-07 16:34 | HHI.PR ---
Subjective Remarks had cardiac cath earlier. in no acute distress. chest pain is better. BP trend noted. Objective Vitals Vital Signs Date Time Temp Pulse Resp B/P (MAP) Pulse Ox O2 Delivery O2 Flow Rate FiO2 07/07/17 16:05 97.9 95 20 142/88 (106) 97 07/07/17 13:15 97.9 95 20 142/88 (106) 97 07/07/17 11:35 22 07/07/17 11:25 98.5 124 22 192/99 (130) 99 Nasal Cannula 2.00 07/07/17 11:25 124 22 99 Nasal Cannula 2.00 07/07/17 11:20 98.5 124 22 199/92 (127) 99 Result Diagram: 07/07/17 1120 07/07/17 1120 Imaging Last Impressions Chest X-Ray 07/07/17 1124 Signed Impressions: Service Date/Time: Friday, July 07, 2017 11:28 - CONCLUSION: No acute disease. Rick Silva MD Objective Remarks GENERAL: This is a well-nourished, well-developed patient, in no apparent distress. CARDIOVASCULAR: Regular rate and regular rhythm without murmurs, gallops, or rubs. RESPIRATORY: Clear to auscultation. Breath sounds equal bilaterally. No wheezes , rales, or rhonchi. GASTROINTESTINAL: Abdomen soft, non-tender, nondistended. Normal, active bowel sounds MUSCULOSKELETAL: Extremities without clubbing, cyanosis, or edema. NEURO: Alert & Oriented x4 to person, place, time, situation. Moves all ext x4 Procedures cardiac cath Medications and IVs Inpatient Medications Aspirin (Aspirin Chew) 324 mg NOW STAT PO Last administered on 07/07/17at 11:31 ; Start 07/07/17 at 11:24; Stop 07/07/17 at 11:27; Status DC Atropine Sulfate (Atropine Inj) 0.5 mg UNSCH PRN IV VAGAL REPONSE; Start at 13:00 Heparin Sodium (Porcine) (Heparin Inj) 4,000 units NOW STAT IV PUSH Last administered on 07/07/17at 11:32; Start 07/07/17 at 11:24; Stop 07/07/17 at 11:27; Status DC Miscellaneous Information 1 ONCE ONCE XX ; Start 07/07/17 at 13:00; Stop at 13:47; Status DC Nitroglycerin (Nitroglycerin 2% Oint) 1 inch ONCE ONCE TOPICAL Last administered on 07/07/17at 11:36; Start 07/07/17 at 11:30; Stop 07/07/17 at 11:31; Status DC Nitroglycerin (Nitrostat Sl) 0.4 mg NOW STAT SL Last administered on 07/07/17at 11:31; Start 07/07/17 at 11:24; Stop 07/07/17 at 11:27; Status DC Nitroglycerin/ Dextrose 250 ml @ 0 mls/hr TITRATE PRN IV FOR ANGINA OR ST ELEVATION; Start 07/07/17 at 12:00 Sodium Chloride 250 ml @ 0 mls/hr UNSCH X1 PRN IV VAGAL REPONSE; Start 07/07/17 at 13:00; Stop 07/07/17 at 23:59 Sodium Chloride (NS Flush) 2 ml UNSCH PRN IVF FLUSH AFTER USING IV ACCESS; Start 07/07/17 at 11:30 A/P Assessment and Plan A/P - chest pain soraya LBBB s/p cardiac cath with Minimal coronary artery disease and Normal left ventricular function with estimated ejection fraction of 60%. cardiology consult appreciated. -hypertensive urgency; start on enalapril- will monitor the BP and adjust the regimen as needed. f/u with pcp upon discharge. says that she was prescribed enalapril in the past but she didn't take it. Discharge Planning dc home tomorrow if BP better controlled. d/w the patient and RN. Hannah Hargrove MD Jul 07, 2017 16:34
[2017-07-07] MEDS ORDERED: cloNIDine HCL 0.1 MG TAB PO PRN (16:45)
[2017-07-07] MEDS ORDERED: PILL SPLITTER OTHER PRN (16:45)
[2017-07-07] MEDS ORDERED: ALPRAZolam 0.25 MG TAB PO PRN (16:45)
[2017-07-07] MEDS: ENALAPRIL MALEATE 5 MG TAB PO SCH (18:02)
[2017-07-07] MEDS ORDERED: CALCIUM CARBONATE 500 MG CHEWABLE TAB CHEW ONE (19:30)
[2017-07-07] MEDS ORDERED: POTASSIUM CHLORIDE 20 MEQ CONTROLLED RELEASE TAB PO ONE (19:30)
--- NOTE | 2017-07-07 19:38 | EKG ---
Date Performed: 07/07/2017 Time Performed: 11:12:42 PTAGE: 66 years EKG: SINUS TACHYCARDIA MARKED LEFT AXIS DEVIATION LEFT BUNDLE BRANCH BLOCK ABNORMAL ECG Since th e prior tracing, there has been no significant change PREVIOUS TRACING : 12/17/2013 18.01 DOCTOR: Mark Lewis Interpretating Date/Time 07/07/2017 19:36:55
[2017-07-08] VITALS (13 sets, daily range): BP systolic 140; BP diastolic 74; PULSE 90–138; RESP 16–18; TEMP 98.8; O2SAT 97–100
[2017-07-08] MEDS ORDERED: diphenhydrAMINE HCL 50 MG CAP PO ONE (05:15)
[2017-07-08 06:15] LABS: CALCIUM 9.3 MG/DL (8.5-10.1); CREATININE 0.83 MG/DL (0.50-1.00)
[2017-07-08 06:16] LABS: BICARBONATE 24.5 MEQ/L (21.0-32.0)
[2017-07-08 06:19] LABS: CHOLESTEROL/ HDL RATIO 3.74 RATIO; HDL CHOLESTEROL 42.5 MG/DL (40.0-60.0)
[2017-07-08] MEDS ORDERED: ENAL5TAB PO (08:27)
--- NOTE | 2017-07-08 08:27 | HHI.DS ---
Discharge Summary Admission Date Jul 07, 2017 at 11:35 Discharge Date: Jul 08, 2017 Admitting Diagnosis STEMI (1) Chest pain ICD Code: R07.9 - Chest pain, unspecified Procedures cardiac cath Brief History - From Admission Patient is a very pleasant 66-year-old female, with past medical history of hypertension, borderline diabetes, hyperlipidemia who came to the emergency room for evaluation of chest pain that started approximately the morning of 07/07/17. Patient is substernal, pressure-like of 63 with some shortness of breath, no palpitations, nausea or diaphoresis. Initially. Emergency room, EKG showed new left bundle branch block and she was called STEMI alert. The patient was transferred to the main hospital. Patient went for cardiac catheterization and normal. Indices. Electrolytes. The patient also developed after that, patient says that point. Patient was started on lisinopril, says she has been on carmelina inhibitors in the past without any problems. Feels better CBC/BMP: 07/07/17 1120 07/08/17 0533 Significant Findings Laboratory Tests Test 07/07/17 11:20 07/08/17 05:33 Lymphocytes (%) (Auto) 49.1 % (9.0-44.0) Monocytes (%) (Auto) 8.1 % (0.0-8.0) Random Glucose 108 MG/DL (74-106) 107 MG/DL (74-106) Potassium Level 3.4 MEQ/L (3.5-5.1) Troponin I LESS THAN 0.02 NG/ML Estimat Glomerular Filtration Rate 83 ML/MIN (>89) Triglycerides Level 188 MG/DL (42-150) Imaging Last Impressions Chest X-Ray 07/07/17 1124 Signed Impressions: Service Date/Time: Friday, July 07, 2017 11:28 - CONCLUSION: No acute disease. Rick Silva MD PE at Discharge GENERAL: This is a well-nourished, well-developed patient, in no apparent distress. CARDIOVASCULAR: Regular rate and regular rhythm without murmurs, gallops, or rubs. RESPIRATORY: Clear to auscultation. Breath sounds equal bilaterally. No wheezes , rales, or rhonchi. GASTROINTESTINAL: Abdomen soft, non-tender, nondistended. Normal, active bowel sounds MUSCULOSKELETAL: Extremities without clubbing, cyanosis, or edema. NEURO: Alert & Oriented x4 to person, place, time, situation. Moves all ext x4 Hospital Course Patient is a very pleasant 66-year-old female, with past medical history of hypertension, borderline diabetes, hyperlipidemia who came to the emergency room for evaluation of chest pain that started approximately the morning of 07/07/17. Patient is substernal, pressure-like of 63 with some shortness of breath, no palpitations, nausea or diaphoresis. Initially. Emergency room, EKG showed new left bundle branch block and she was called STEMI alert. The patient was transferred to [facility]. Patient went for cardiac catheterization and normal. The patient also developed after that, patient says that point. Patient was started on lisinopril, says she has been on carmelina inhibitors in the past without any problems. Feels better. BP better controlled cleared by cardiology for DC. DC home in stable condition to follow up as OP with PCP and consultants. Chest pain with LBBB s/p cardiac cath with Minimal coronary artery disease and Normal left ventricular function with estimated ejection fraction of 60%. cardiology consult appreciated. Hypertensive urgency; start on enalapril- will monitor the BP and adjust the regimen as needed. f/u with pcp upon discharge. says that she was prescribed enalapril in the past but she didn't take it. Anxiety. ativan prn to follow up as OP with PCP Rash 2/2 contrast allergy, improved received benadryl doesn't like it, will give prednisone at DC Discharge Planning DC home, BP better controlled. Pt Condition on Discharge: Stable Discharge Disposition: Discharge Home Discharge Time: > 30 minutes Discharge Instructions DIET: Follow Instructions for: Heart Healthy Diet Activities you can perform: Regular-No Restrictions Follow up Referrals: Cardiology - 2 Weeks PCP Follow-up - 3-5 Days New Medications: Prednisone (Prednisone) 20 Mg Tab 40 MG PO DAILY for Allergies, #4 TAB 0 Refills Take 40 mg (2 tablets) daily for 5 days Alprazolam (Xanax) 0.25 Mg Tab 0.125 MG PO Q12HR PRN for ANXIETY, #10 TAB Enalapril (Enalapril) 5 Mg Tab 5 MG PO DAILY for Blood Pressure Management, #30 TAB Roxy Yi MD Jul 08, 2017 08:27
[2017-07-08] MEDS: ENALAPRIL MALEATE 5 MG TAB PO SCH (09:00)
[2017-07-08] MEDS ORDERED: PRED20 PO (09:23)
[2017-07-08] MEDS ORDERED: ALPR.25 PO (09:23)
--- NOTE | 2017-07-08 10:50 | HHI.HP ---
HPI Service [facility] Primary Care Physician No Primary Care Physician Admission Diagnosis STEMI Diagnoses: Chief Complaint: chest pain Travel History International Travel<30 Days: No Contact w/Intl Traveler <30 Da: No Traveled to Known Affected Are: No History of Present Illness Patient is a very pleasant 66-year-old female, with past medical history of hypertension, borderline diabetes, hyperlipidemia who came to the emergency room for evaluation of chest pain that started approximately the morning of 07/07/17. Patient is substernal, pressure-like of 63 with some shortness of breath, no palpitations, nausea or diaphoresis. Initially. Emergency room, EKG showed new left bundle branch block and she was called STEMI alert. The patient was transferred to the main hospital. Patient went for cardiac catheterization and normal. Indices. Electrolytes. The patient also developed after that, patient says that point. Patient was started on lisinopril, says she has been on carmelina inhibitors in the past without any problems. Feels better Review of Systems Except as stated in HPI: all other systems reviewed are Neg Past Family Social History Past Medical History Hypertension, borderline diabetes, hyperlipidemia Past Surgical History none Reported Medications Reported Meds & Active Scripts Active Xanax (Alprazolam) 0.25 Mg Tab 0.125 Mg PO Q12HR PRN Prednisone 20 Mg Tab 40 Mg PO DAILY Take 40 mg (2 tablets) daily for 5 days Enalapril (Enalapril Maleate) 5 Mg Tab 5 Mg PO DAILY Allergies: Coded Allergies: levofloxacin (Verified Allergy, Severe, Hives, 07/07/17) Iodinated Contrast- Oral and IV Dye (Verified Allergy, Mild, Rash, 07/08/17) morphine (Verified Adverse Reaction, Severe, Nausea, 07/07/17) Family History No history of early myocardial infarction or sudden in the family. Social History Denies alcohol use, illicit drug use or tobacco use Physical Exam Vital Signs Vital Signs Date Time Temp Pulse Resp B/P (MAP) Pulse Ox O2 Delivery O2 Flow Rate FiO2 07/08/17 10:10 92 07/08/17 09:00 96 07/08/17 08:48 98.8 107 18 140/74 (96) 97 07/08/17 08:00 92 07/08/17 07:00 90 07/08/17 06:00 120 07/08/17 05:00 138 07/08/17 04:00 94 07/08/17 03:40 93 16 140/74 (96) 100 07/08/17 03:00 92 07/08/17 02:00 92 07/08/17 01:00 92 07/08/17 00:00 92 07/07/17 23:33 93 16 126/74 (91) 98 07/07/17 23:00 100 07/07/17 22:00 94 07/07/17 21:00 90 07/07/17 20:20 98.6 101 16 129/83 (98) 99 07/07/17 20:00 108 07/07/17 19:00 127 07/07/17 17:00 88 07/07/17 16:05 97.9 95 20 142/88 (106) 97 07/07/17 16:00 89 07/07/17 13:15 97.9 95 20 142/88 (106) 97 07/07/17 11:35 22 07/07/17 11:25 98.5 124 22 192/99 (130) 99 Nasal Cannula 2.00 07/07/17 11:25 124 22 99 Nasal Cannula 2.00 07/07/17 11:20 98.5 124 22 199/92 (127) 99 Physical Exam GENERAL: This is a well-nourished, well-developed patient, in no apparent distress. SKIN: No rashes, ecchymoses or lesions. Cool and dry. HEAD: Atraumatic. Normocephalic. No temporal or scalp tenderness. EYES: Pupils equal round and reactive. Extraocular motions intact. No scleral icterus. No injection or drainage. ENT: Nose without bleeding, purulent drainage or septal hematoma. Throat without erythema, tonsillar hypertrophy or exudate. Uvula midline. Airway patent. NECK: Trachea midline. No JVD or lymphadenopathy. Supple, nontender, no meningeal signs. CARDIOVASCULAR: Regular rate and rhythm without murmurs, gallops, or rubs. RESPIRATORY: Clear to auscultation. Breath sounds equal bilaterally. No wheezes , rales, or rhonchi. GASTROINTESTINAL: Abdomen soft, non-tender, nondistended. No hepato-splenomegaly , or palpable masses. No guarding. MUSCULOSKELETAL: Extremities without clubbing, cyanosis, or edema. No joint tenderness, effusion, or edema noted. No calf tenderness. Negative Homans sign bilaterally. NEUROLOGICAL: Awake and alert. Cranial nerves II through XII intact. Motor and sensory grossly within normal limits. Five out of 5 muscle strength in all muscle groups. Normal speech. Laboratory Laboratory Tests Test 07/07/17 11:20 07/08/17 05:33 White Blood Count 9.2 Red Blood Count 4.64 Hemoglobin 13.7 Hematocrit 41.2 Mean Corpuscular Volume 88.7 Mean Corpuscular Hemoglobin 29.5 Mean Corpuscular Hemoglobin Concent 33.3 Red Cell Distribution Width 13.0 Platelet Count 395 Mean Platelet Volume 8.9 Neutrophils (%) (Auto) 40.8 Lymphocytes (%) (Auto) 49.1 Monocytes (%) (Auto) 8.1 Eosinophils (%) (Auto) 1.3 Basophils (%) (Auto) 0.7 Neutrophils # (Auto) 3.7 Lymphocytes # (Auto) 4.6 Monocytes # (Auto) 0.7 Eosinophils # (Auto) 0.1 Basophils # (Auto) 0.1 CBC Comment DIFF FINAL Differential Comment Prothrombin Time 10.1 Prothromb Time International Ratio 1.0 Activated Partial Thromboplast Time 25.4 Blood Urea Nitrogen 14 12 Creatinine 0.78 0.83 Random Glucose 108 107 Calcium Level 9.3 9.3 Magnesium Level 2.1 Sodium Level 139 140 Potassium Level 3.4 3.7 Chloride Level 105 106 Carbon Dioxide Level 27.3 24.5 Anion Gap 7 10 Estimat Glomerular Filtration Rate 89 83 Total Creatine Kinase 88 Troponin I LESS THAN 0.02 B-Type Natriuretic Peptide 21 Triglycerides Level 188 Cholesterol Level 159 LDL Cholesterol 79 HDL Cholesterol 42.5 Cholesterol/HDL Ratio 3.74 Result Diagram: 07/07/17 1120 07/08/17 0533 Imaging Last Impressions Chest X-Ray 07/07/17 1124 Signed Impressions: Service Date/Time: Friday, July 07, 2017 11:28 - CONCLUSION: No acute disease. MD Natalio Kaiser VTE Risk Assessment Caprini VTE Risk Assessment: Mod/High Risk (score >= 2) Caprini Risk Assessment Model Point Value = 1 Point Value = 2 Point Value = 3 Point Value = 5 Age 41-60 Minor surgery BMI > 25 kg/m2 Swollen legs Varicose veins or History of unexplained or recurrent spontaneous Oral contraceptives or hormone replacement Sepsis (< 1 month) Serious lung disease, including pneumonia (< 1 month) Abnormal pulmonary function Acute myocardial infarction Congestive heart failure (< 1 month) History of inflammatory bowel disease Medical patient at bed rest Age 61-74 Arthroscopic surgery Major open surgery (> 45 min) Laparoscopic surgery (> 45 min) Malignancy Confined to bed (> 72 hours) Immobilizing plaster cast Central venous access Age >= 75 History of VTE Family history of VTE Factor V Leiden Prothrombin [id number] Lupus anticoagulant Anticardiolipin antibodies Elevated serum homocysteine Heparin-induced thrombocytopenia Other congenital or acquired thrombophilia Stroke (< 1 month) Elective arthroplasty Hip, pelvis, or leg fracture Acute spinal cord injury (< 1 month) Prophylaxis Regimen Total Risk Factor Score Risk Level Prophylaxis Regimen 0-1 Low Early ambulation 2 Moderate Order ONE of the following: *Sequential Compression Device (SCD) *Heparin 5000 units SQ BID 3-4 Higher Order ONE of the following medications: *Heparin 5000 units SQ TID *Enoxaparin/Lovenox 40 mg SQ daily (WT < 150 kg, CrCl > 30 mL/min) *Enoxaparin/Lovenox 30 mg SQ daily (WT < 150 kg, CrCl > 10-29 mL/min) *Enoxaparin/Lovenox 30 mg SQ BID (WT < 150 kg, CrCl > 30 mL/min) AND/OR *Sequential Compression Device (SCD) 5 or more Highest Order ONE of the following medications: *Heparin 5000 units SQ TID (Preferred with Epidurals) *Enoxaparin/Lovenox 40 mg SQ daily (WT < 150 kg, CrCl > 30 mL/min) *Enoxaparin/Lovenox 30 mg SQ daily (WT < 150 kg, CrCl > 10-29 mL/min) *Enoxaparin/Lovenox 30 mg SQ BID (WT < 150 kg, CrCl > 30 mL/min) AND *Sequential Compression Device (SCD) Assessment and Plan Assessment and Plan Chest pain soraya LBBB s/p cardiac cath with Minimal coronary artery disease and Normal left ventricular function with estimated ejection fraction of 60%. cardiology consult appreciated. Hypertensive urgency; start on enalapril- will monitor the BP and adjust the regimen as needed. f/u with pcp upon discharge. says that she was prescribed enalapril in the past but she didn't take it. Rash 2/2 contrast allergy, improved received benadryl doesn't like it, will give prednisone at DC Discharge Planning dc home, BP better controlled. Discussed Condition With Patient, nurse Physician Certification 2 Midnight Certification Type: Admission for Inpatient Services Order for Inpatient Services The services are ordered in accordance with Medicare regulations or non- Medicare payer requirements, as applicable. In the case of services not specified as inpatient-only, they are appropriately provided as inpatient services in accordance with the 2-midnight benchmark. Estimated LOS (days): 3 days is the estimated time the patient will need to remain in the hospital, assuming treatment plan goals are met and no additional complications. Post-Hospital Plan: Home Roxy Yi MD Jul 08, 2017 10:50
== END 2017-07-08 11:00 | disposition home or self-care (01) | DRG 287 ==
LOC: PHED 11:06 → PHEDA 11:35 → HCIS 12:58
PROVIDERS: ADMIT Hospitalist; ATTEND Hospitalist
PROC: B2151ZZ Fluoroscopy of Left Heart using Low Osmolar Contrast (ICD-10-PCS; principal; 2017-07-07)
PROC: B2111ZZ Fluoroscopy of Multiple Coronary Arteries using Low Osmolar Contrast (ICD-10-PCS; 2017-07-07)
PROC: 4A023N7 Measurement of Cardiac Sampling and Pressure, Left Heart, Percutaneous Approach (ICD-10-PCS; 2017-07-07)
DX: I16.0 Hypertensive urgency (principal); E78.5 Hyperlipidemia, unspecified; I44.7 Left bundle-branch block, unspecified; R21 Rash and other nonspecific skin eruption; T50.8X5A Adverse effect of diagnostic agents, initial encounter; Y92.238 Other place in hospital as the place of occurrence of the external cause; I10 Essential (primary) hypertension; R73.03 Prediabetes; F41.9 Anxiety disorder, unspecified
CPT/HCPCS: 71045; 80048; 80061; 82550; 83735; 83880; 84484; 85025; 85610; 85730; 93005; 93458; 96374; 99152; C1760; C1769; C1893; G0269; J1644; J1720; J2250; J3010; J7030; Q0163; Q9967

== ENCOUNTER 2017-09-11 20:20 | Emergency (ER) | payer MEDICARE, OTHER ==
[~2017-09-11] VITALS: Ht 170.2 cm; Wt 109.4 kg
[~2017-09-11 20:20] MED LIST changes: +ALPR.25 PO; -AZIT250T3 PO; -B P MED; -BENZ100 PO; +ENAL5TAB PO; +PRED20 PO; -VENTAER INH
[2017-09-11 20:36] VITALS: BP 186/99; PULSE 91; RESP 18; TEMP 98.3; O2SAT 98
[2017-09-11] MEDS ORDERED: ENAL20TA PO (20:51)
[2017-09-11] MEDS ORDERED: SODIUM CHLORIDE 0.9% FLUSH 10 ML FLUSH IVF PRN (21:30)
--- NOTE | 2017-09-11 21:38 | PD ---
HPI Chief Complaint: Hypertension Time Seen by Provider: 20:54 Travel History International Travel<30 days: No Contact w/Intl Traveler<30days: No Traveled to known affect area: No History of Present Illness HPI Patient is a 67-year-old female presents emergency department for evaluation of fatigue over the past few months. Patient states she sat down to take her blood pressure night because she was to continue to feel fatigue and noticed it was elevated. Patient admits intermittent compliance with her enalapril therapy prescribed to her by primary care physician. She also endorses bilateral flank pain which she states is been present for years. Patient states she would like to find out what is causing that because she is tired of spending money and ER physicians. Patient denies any acute chest pain shortness of breath abdominal pain nausea vomiting dysuria shortness of breath or headache. States her blood pressure was significantly elevated tonight over 200 systolic. She states that she took enalapril prior to arrival. States her symptoms are moderate, context as above, associated signs symptoms as above, started over a month ago peer PFSH Past Medical History Anxiety: Yes Heart Rhythm Problems: No Cancer: No Cardiac Catheterization: Yes Cardiovascular Problems: No High Cholesterol: No Congestive Heart Failure: No Coronary Artery Disease: Yes Diabetes: No Diminished Hearing: No Endocrine: No Genitourinary: Yes (UTI january 2017) Hypertension: Yes Immune Disorder: No Musculoskeletal: No Neurologic: No Psychiatric: No Reproductive: No Respiratory: Yes (R partial lung collapse) Myocardial Infarction: No Tetanus Vaccination: Unknown Influenza Vaccination: No Menopausal: Yes Past Surgical History Abdominal Surgery: Yes (total abdominal hesterectomy) Coronary Artery Bypass Graft: No Hysterectomy: Yes Other Surgery: Yes (1989, abdominal hesterectomy) Social History Alcohol Use: No Tobacco Use: No Substance Use: No Allergies-Medications (Allergen,Severity, Reaction): Coded Allergies: levofloxacin (Verified Allergy, Severe, Hives, 09/11/17) Iodinated Contrast- Oral and IV Dye (Verified Allergy, Mild, Rash, 09/11/17) morphine (Verified Adverse Reaction, Severe, Nausea, 09/11/17) Reported Meds & Prescriptions Reported Meds & Active Scripts Active Xanax (Alprazolam) 0.25 Mg Tab 0.125 Mg PO Q12HR PRN Reported Enalapril (Enalapril Maleate) 20 Mg Tab 20 Mg PO DAILY Review of Systems Except as stated in HPI: all other systems reviewed are Neg Physical Exam Narrative GENERAL: Well-developed, obese female in no obvious distress peer SKIN: Focused skin assessment warm/dry. HEAD: Atraumatic. Normocephalic. EYES: Pupils equal and round. No scleral icterus. No injection or drainage. ENT: No nasal bleeding or discharge. Mucous membranes pink and moist. NECK: Trachea midline. No JVD. CARDIOVASCULAR: Regular rate and rhythm. No murmur appreciated. No chest wall tenderness RESPIRATORY: No accessory muscle use. Clear to auscultation. Breath sounds equal bilaterally. GASTROINTESTINAL: Abdomen soft, non-tender, nondistended. Hepatic and splenic margins not palpable. MUSCULOSKELETAL: No obvious deformities. No clubbing. No cyanosis. No edema. NEUROLOGICAL: Awake and alert. Renal nerves II through XII grossly intact and nonfocal, 5 out of 5 strength in all 4 extremities, ambulates with an even narrow-base gait, normal speech.. PSYCHIATRIC: Appropriate mood and affect; insight and judgment normal. Data Data Last Documented VS Vital Signs Date Time Temp Pulse Resp B/P (MAP) Pulse Ox O2 Delivery O2 Flow Rate FiO2 09/11/17 22:54 80 18 169/95 (119) 97 09/11/17 21:44 Room Air 09/11/17 20:36 98.3 Orders Orders Electrocardiogram (09/11/17 21:23) Complete Blood Count With Diff (09/11/17 21:23) Comprehensive Metabolic Panel (09/11/17 21:23) Lipase (09/11/17 21:23) Ecg Monitoring (09/11/17 21:23) Iv Access Insert/Monitor (09/11/17 21:23) Oximetry (09/11/17 21:23) Oxygen Administration (09/11/17 21:23) Sodium Chloride 0.9% Flush (Ns Flush) (09/11/17 21:30) Chest, Pa & Lat (09/11/17 21:23) Urinalysis - C+S If Indicated (09/11/17 21:23) Thyroid Stimulating Hormone (09/11/17 21:23) Ed Discharge Order (09/11/17 22:42) Labs Laboratory Tests Test 09/11/17 21:40 White Blood Count 7.2 TH/MM3 Red Blood Count 4.45 MIL/MM3 Hemoglobin 13.9 GM/DL Hematocrit 40.1 % Mean Corpuscular Volume 90.2 FL Mean Corpuscular Hemoglobin 31.2 PG Mean Corpuscular Hemoglobin Concent 34.6 % Red Cell Distribution Width 14.6 % Platelet Count 356 TH/MM3 Mean Platelet Volume 8.4 FL Neutrophils (%) (Auto) 57.8 % Lymphocytes (%) (Auto) 29.4 % Monocytes (%) (Auto) 6.2 % Eosinophils (%) (Auto) 2.0 % Basophils (%) (Auto) 4.6 % Neutrophils # (Auto) 4.3 TH/MM3 Lymphocytes # (Auto) 2.1 TH/MM3 Monocytes # (Auto) 0.4 TH/MM3 Eosinophils # (Auto) 0.1 TH/MM3 Basophils # (Auto) 0.3 TH/MM3 CBC Comment DIFF FINAL Differential Comment Urine Color YELLOW Urine Turbidity CLEAR Urine pH 6.5 Urine Specific [employer] LESS/EQUAL 1.005 Urine Protein NEG mg/dL Urine Glucose (UA) NEG mg/dL Urine Ketones NEG mg/dL Urine Occult Blood TRACE Urine Nitrite NEG Urine Bilirubin NEG Urine Urobilinogen 0.2 MG/DL Urine Leukocyte Esterase NEG Urine Squamous Epithelial Cells 0-5 /hpf Microscopic Urinalysis Comment CULT NOT INDICATED Blood Urea Nitrogen 14 MG/DL Creatinine 0.71 MG/DL Random Glucose 100 MG/DL Total Protein 8.7 GM/DL Albumin 3.5 GM/DL Calcium Level 9.0 MG/DL Alkaline Phosphatase 118 U/L Aspartate Amino Transf (AST/SGOT) 38 U/L Alanine Aminotransferase (ALT/SGPT) 44 U/L Total Bilirubin 0.5 MG/DL Sodium Level 136 MEQ/L Potassium Level 3.8 MEQ/L Chloride Level 104 MEQ/L Carbon Dioxide Level 26.7 MEQ/L Anion Gap 5 MEQ/L Estimat Glomerular Filtration Rate 99 ML/MIN Lipase 106 U/L Thyroid Stimulating Hormone 3rd Gen 1.450 uIU/ML [facility] Medical Decision Making Medical Screen Exam Complete: Yes Emergency Medical Condition: Yes Differential Diagnosis Asymptomatic elevated blood pressure, hypertensive emergency unlikely, chronic chest wall pain, chronic fatigue peer Narrative Course Patient room to the emergency department, she has complaints of generalized fatigue which is really the reason she took her blood pressure tonight, her basic lab workup for this is not impressive, no anemia, no electrolyte abnormality, no kidney and no liver dysfunction, chest x-ray negative, EKG does show left bundle branch block which she is known previously. She was admitted here in July and she had a cardiac catheterization which I reviewed tonight which shows only minimal disease in the right coronary system. The patient was reassured, I do not have any indication to lower her blood pressure acutely inciting the [employer] physician's recommendation paper it is probably detrimental to lower her blood pressure emergently in the ER, she did asked nursing for a prescription for clonidine and I have told her that she needs to be more compliant with her Enalapril before adding an additional blood pressure medication. She is stable for discharge discussed follow-up with her primary care physician. Discussed return to ED criteria with her. Diagnosis Primary Impression: Fatigue Qualified Codes: R53.83 - Other fatigue Disposition: 01 DISCHARGE HOME Condition: Stable Carmelo Salas MD Sep 11, 2017 21:38
[2017-09-11 21:44] VITALS: BP 178/87; PULSE 78; RESP 16; O2SAT 97
[2017-09-11 21:52] LABS: AUTOMATED NEUTROPHIL # 4.3 TH/MM3 (1.8-7.7); BASOPHIL # 0.3 TH/MM3 (0-0.2); BASOPHIL % 4.6 % (0.0-2.0); EOSINOPHIL # 0.1 TH/MM3 (0-0.4); HEMATOCRIT 40.1 % (35.0-46.0); HEMOGLOBIN 13.9 GM/DL (11.6-15.3); LYMPH % 29.4 % (9.0-44.0); LYMPHOCYTE # 2.1 TH/MM3 (1.0-4.8); MEAN CELL VOLUME 90.2 FL (80.0-100.0); MEAN CORPUSCULAR HEMOGLOBIN 31.2 PG (27.0-34.0); MEAN CORPUSCULAR HGB CONC 34.6 % (32.0-36.0); MEAN PLATELET VOLUME 8.4 FL (7.0-11.0); MONO % 6.2 % (0.0-8.0); MONOCYTE # 0.4 TH/MM3 (0-0.9); NEUT % 57.8 % (16.0-70.0); PLATELET COUNT 356 TH/MM3 (150-450); RED BLOOD COUNT 4.45 MIL/MM3 (4.00-5.30); RED CELL DISTRIBUTION WIDTH 14.6 % (11.6-17.2); WHITE BLOOD COUNT 7.2 TH/MM3 (4.0-11.0)
[2017-09-11 21:57] LABS: BILIRUBIN, URINE NEG (NEG); BLOOD, URINE TRACE (NEG); GLUCOSE,URINE NEG (NEG); KETONE, URINE NEG (NEG); NITRITE,URINE NEG (NEG); PH, URINE 6.5 (5.0-8.5); URINE COLOR YELLOW (YELLW/STRAW); URINE LEUKOCYTE ESTERASE NEG (NEG)
[2017-09-11 22:03] LABS: CHLORIDE 104 MEQ/L (98-107); SODIUM (NA) 136 MEQ/L (136-145)
[2017-09-11 22:05] LABS: SQUAMOUS EPITHELIAL CELL URINE 0-5 /hpf (0-5)
[2017-09-11 22:07] LABS: ALBUMIN 3.5 GM/DL (3.4-5.0); BICARBONATE 26.7 MEQ/L (21.0-32.0); BLOOD UREA NITROGEN 14 MG/DL (7-18); GLUCOSE,RANDOM 100 MG/DL (74-106)
[2017-09-11 22:10] LABS: ALT (GPT) 44 U/L (10-53); AST (GOT) 38 U/L (15-37); CREATININE 0.71 MG/DL (0.50-1.00); GLOMERULAR FILTRATION RATE 99 ML/MIN (>89)
[2017-09-11 22:11] LABS: TOTAL BILIRUBIN ADULT 0.5 MG/DL (0.2-1.0); TOTAL PROTEIN 8.7 GM/DL (6.4-8.2)
[2017-09-11 22:12] LABS: ALKALINE PHOSPHATASE 118 U/L (45-117)
--- NOTE | 2017-09-11 22:21 | RADRPT ---
EXAM DATE/TIME: 09/11/2017 21:29 [facility] COMPARISON: CHEST PA & LAT, October 01, 2016, 0:19. INDICATIONS : Hypertension. MEDICAL HISTORY : Hypertension. Coronary artery disease. SURGICAL HISTORY : Cardiac catheterization. ENCOUNTER: Initial ACUITY: 1 day PAIN SCORE: 0/10 LOCATION: Bilateral chest FINDINGS: PA and lateral views of the chest demonstrate basilar lung fibrosis probably with some early honeycom katie. Findings appears slightly progressed from September 2016. No new consolidation or effusion. Heart s ize within normal limits. Tortuous aorta. CONCLUSION: 1. 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 Tortuous aorta. Sterling Daley MD on September 11, 2017 at 22:16 Board Certified Radiologist. This report was verified electronically.
[2017-09-11 22:54] VITALS: BP 169/95
--- NOTE | 2017-09-12 04:43 | EKG ---
Date Performed: 09/11/2017 Time Performed: 21:48:12 PTAGE: 67 years EKG: Sinus rhythm MARKED LEFT AXIS DEVIATION LEFT BUNDLE BRANCH BLOCK ABNORMAL ECG Compared to prior electrocardiogram , rate has decreased PREVIOUS TRACING : 07/07/2017 11.12 DOCTOR: Guille Staley Interpretating Date/Time 09/12/2017 04:42:01
== END 2017-09-11 23:09 | disposition home or self-care (01) ==
LOC: PHED 20:20
DX: R53.83 Other fatigue (principal); I10 Essential (primary) hypertension; R10.9 Unspecified abdominal pain; I44.7 Left bundle-branch block, unspecified; R94.31 Abnormal electrocardiogram [ECG] [EKG]; F41.9 Anxiety disorder, unspecified; I25.10 Atherosclerotic heart disease of native coronary artery without angina pectoris
CPT/HCPCS: 71046; 80053; 81001; 83690; 84443; 85025; 93005; 99285